=== PATIENT | female | born 1970 | race Caucasian/White ===

== ENCOUNTER 2023-07-26 21:33 | Emergency (ER) | payer BC, SELFPAY ==
[2023-07-26 21:40] VITALS: BP 136/80; PULSE 110; RESP 18; TEMP 36.7; O2SAT 92; BMI 33.3
--- NOTE | 2023-07-26 22:17 | ED.NAVMDI ---
HPI - Nausea/Vomiting/Diarrhea General Time Seen by Provider: 22:17 Date Seen: 07/26/23 Chief complaint: Nausea/Vomiting Stated complaint: Vomiting Time Seen by Provider: 07/26/23 22:17 Source: patient, family and RN notes reviewed Mode of arrival: EMS Limitations: no limitations History of Present Illness HPI Narrative: Patient is a very pleasant 53-year-old female with history of tobacco use, alcohol use daily 1 drink who comes to the emergency room for evaluation regarding vomiting and blood in her vomit. Patient noted to have been eating with her family tonight at a seafood restaurant. They also had the same food. Shortly thereafter she began experiencing vomiting that was quite violent. They actually had to call the ambulance and patient's vomiting resolved with dosing of Zofran. Patient notes that her throat is sore right now. She denies a sore throat prior to the vomiting, runny nose fever or chills. Strangely, approximately 2 weeks ago they also had seafood and she did have an episode of vomiting. This did not continue for a couple hours like this evening. Patient denies difficulty breathing. She is able to swallow without difficulty. She notes no abdominal pain. Associated nausea: Yes Related Data Allergies Allergy/AdvReac Type Severity Reaction Status Date / Time No Known Drug Allergies Allergy Verified 07/26/23 21:50 Review of Systems Status of ROS: Reports: 10 or more systems reviewed and unremarkable except as noted in History and below Const: Denies: fever or chills ENMT: Reports: throat pain and hoarseness; Denies: neck pain, throat swelling, difficulty swallowing, mouth pain or swelling of lips/tongue Cardio: Denies: chest pain or shortness of breath with exertion Resp: Denies: shortness of breath or cough GI: Reports: nausea and vomiting; Denies: abdominal pain, diarrhea or difficulty swallowing : Denies: painful urination Musculo: Denies: back pain or neck pain Integ/Breast: Denies: rash Neuro: Denies: headache Allergy/Immuno: Denies: throat swelling PFSH PFSH Medical History Tobacco use (02/16/09) ?Z72.0 - Tobacco use (ICD-10) Internal hemorrhoids ?K64.8 - Other hemorrhoids (ICD-10) Boxers fracture ?S62.339A - Displaced fracture of neck of unspecified metacarpal bone, initial encounter for closed fracture (ICD-10) Injury ?T14.90XA - Injury, unspecified, initial encounter (ICD-10) Surgical History Status post laparoscopic appendectomy ?Z90.49 - Acquired absence of other specified parts of digestive tract (ICD-10) Social History Smoking Status: Current every day smoker What tobacco products do you use: cigarettes Do you use any of these nicotine containing products: None Second hand tobacco smoke exposure: No How often do you have a drink containing alcohol: 2-3 times a week How many standard drinks containing alcohol do you have on a typical day: 1 or 2 How often do you have six or more drinks on one occasion: Never AUDIT-C Alcohol total score: 3 Non-prescribed substance use: denies use Exam Narrative: Exam Narrative: Patient is alert and oriented. Slightly hoarse voice. Nontoxic in appearance. No acute distress. External ears eyes nose clear. Oral cavity with moist mucous membranes. No swelling of the posterior oropharynx or tongue. Neck is supple without lymphadenopathy. Heart with a tachycardic rate but normal rhythm. Oxygen saturations are 91-94%. Lungs are clear in all lung anaya. Abdomen is soft nontender. Lower extremities without edema. No evidence of subcutaneous emphysema. Const: Vital Signs, click to edit/add: Vital Signs - 24 hr 07/26/23 21:40 07/26/23 23:09 07/26/23 23:15 Temperature 98.0 F Pulse Rate 99 100 Pulse Rate [Right Pulse Oximeter] 110 H Respiratory Rate 18 Blood Pressure [Ri ght Upper Arm] 136/80 Pulse Oximetry 92 94 93 Oxygen Delivery Me thod Room Air 07/26/23 23:30 Temperature Pulse Rate 98 Pulse Rate [Right Pulse Oximeter] Respiratory Rate Blood Pressure [Ri ght Upper Arm] Pulse Oximetry 94 Oxygen Delivery Me thod Documenting provider has reviewed patient's vital signs: yes Course Course ED Course: At this time differential diagnosis includes but is not limited to allergic reaction, esophagitis, esophageal rupture, biliary colic, bowel obstruction, gastritis. Will place IV give 1 L of normal saline along with treatment for potential allergic reaction with Benadryl 50 mg, dexamethasone 10 mg, famotidine 20 mg IV. Reevaluation(s) Reevaluation #1: White count has come back elevated at 20,000 thousand. Have ordered chest CT as family notes blood in vomit described as small clots. Vital Signs Vital signs: Initial Vital Signs Temperature 98.0 F 07/26/23 21:40 Temperature Source Temporal Artery Scan 07/26/23 21:40 Pulse Rate 110 H 07/26/23 21:40 Respiratory Rate 18 07/26/23 21:40 Blood Pressure 136/80 07/26/23 21:40 Blood Pressure Mean 98 07/26/23 21:40 Blood Pressure Position Sitting 07/26/23 21:40 Pulse Oximetry 92 07/26/23 21:40 Oxygen Delivery Method Room Air 07/26/23 21:40 Vital Signs Temperature 98.0 F 07/26/23 21:40 Pulse Rate 110 H 07/26/23 21:40 Respiratory Rate 18 07/26/23 21:40 Blood Pressure 136/80 07/26/23 21:40 Pulse Oximetry 92 07/26/23 21:40 Oxygen Delivery Method Room Air 07/26/23 21:40 Temperature 98.0 F 07/26/23 21:40 Pulse Rate 98 07/26/23 23:30 Respiratory Rate 18 07/26/23 21:40 Blood Pressure 136/80 07/26/23 21:40 Pulse Oximetry 94 07/26/23 23:30 Oxygen Delivery Method Room Air 07/26/23 21:40 Medications Administered Medications: Generic Name Dose Route Start Last Admin Trade Name Froilan PRN Reason Stop Dose Admin Dexamethasone 10 mg 07/26/23 22:18 07/26/23 22:42 Dexamethasone 10 Mg/Ml Inj IVP 07/26/23 22:19 10 mg ONCE ONE Administration Diphenhydramine HCl 50 mg 07/26/23 22:18 07/26/23 22:42 Diphenhydramine 50 Mg/Ml Inj IVP 07/26/23 22:19 50 mg ONCE ONE Administration Famotidine 20 mg 07/26/23 22:18 07/26/23 22:42 Famotidine 10 Mg/Ml Inj IVP 07/26/23 22:19 20 mg ONCE ONE Administration Sodium Chloride 1,000 mls @ 1,000 mls/hr 07/26/23 22:19 07/26/23 23:52 0.9 % Sodium Chloride 1000 Ml IV 07/26/23 23:18 Infused .Q1H COLIN Infusion MDM - Nausea/Vomiting/Diarrhea MDM Narrative Medical decision making narrative: 1. Vomiting-resolved after dose of Zofran with EMS. No recurrent vomiting in the ED. This is not occurring in the setting of diarrhea, abdominal pain or recent fever. 2. GI allergic reaction -tonight's reaction appears to be related to the intake of seafood. Similar but much milder occurrence 2 weeks ago when eating seafood. At this point would recommend avoiding seafood. LFTs minimally elevated. Lipase within normal limits. Patient continues to feel well with soft abdomen no sign of obstruction or right upper quadrant pain. Patient received dexamethasone, famotidine as well as Benadryl. Would like patient to continue Benadryl 50 mg every 6 hours last dose tomorrow night. 3. Hematemesis-likely secondary to Alondra-Jacobo tear. Again no further vomiting in the ED. Patient did receive famotidine through IV. Recommend continuing with Pepcid b.i.d. or omeprazole daily for 5-7 days. 4. Leukocytosis-likely demargination. However, would have her follow up with her primary MD for recheck. 5. Disposition -home at this time. Seek medical attention for any worsening symptoms. Note patient still has somewhat of a raspy voice but has been drinking without difficulty. No complaints of difficulty with swallowing, breathing. She has been monitored in the ED for a number of hours without worsening but only improvement of her symptoms. Medical Records Attestation: I reviewed the patient's medical records. Lab Data Attestation: I reviewed the patient's lab results. Labs: Lab Results 07/26/23 Range/Units 22:40 WBC 20.13 H (4.50-11.00) K/uL RBC 4.86 (4.00-5.20) m/uL Hgb 16.5 H (12.0-16.0) gm/dL Hct 47.7 (33.0-51.0) % MCV 98 (80-100) fL MCH 34 (26-34) pg MCHC 35 (32-36) gm/dL RDW Coeff of Soraya 12.4 (11.5-15.5) % Plt Count 270 (140-440) K/uL Neut % (Auto) 84.7 H (42.0-72.0) % Lymph % (Auto) 6.5 L (20-44) % [place] % (Auto) 7.2 (0.0-11.0) % Eos % (Auto) 0.3 (0.0-7.0) % Baso % (Auto) 0.1 (0.0-3.0) % Neut # (Auto) 17.10 H (1.7-7.0) K/uL Lymph # (Auto) 1.30 (0.90-2.90) K/uL [place] # (Auto) 1.40 H (0.00-0.90) K/UL Eos # (Auto) 0.10 (0.00-0.50) K/uL Baso # (Auto) 0.00 (0.00-0.30) K/uL Abs Immat Gran (auto) 0.20 (0.00-0.30) K/uL Imm/Tot Granulo (auto) 1.2 % Sodium 137 (135-149) mmol/L Potassium 4.1 (3.6-5.1) mmol/L Chloride 102 (96-114) mmol/L Carbon Dioxide 24 (20-32) mmol/L Anion Gap 11 (7-15) mEq/L BUN 17 (7-30) mg/dL Creatinine 0.6 (0.5-1.5) mg/dL Estimated Creat Clear 97.57 Estimated GFR 107 ml/min Glucose 140 H (60-115) mg/dL Calcium 9.5 (8.4-10.6) mg/dL Total Bilirubin 0.7 (0.1-1.5) mg/dL AST 61 H (12-35) U/L ALT 64 H (4-35) U/L Alkaline Phosphatase 95 (40-150) U/L C-Reactive Protein 1.2 H (0.5-1.0) mg/dL Total Protein 7.9 (6.0-8.3) g/dL Albumin 4.5 (3.3-5.0) g/dL Lipase 129 (23-300) U/L Imaging Data CT scan - chest: Attestation: I have reviewed the pertinent imaging results. My impression: I do not note any any signs of ruptured esophagus or other abnormality. Radiologist's impression: Lower neck: Partially calcified nodule in the left lower thyroid lobe. Lungs: Scattered emphysematous changes. Mild pulmonary vascular congestion. No focal consolidation. Airways: The trachea remains patent. Pleura: No pleural effusions, or pneumothorax. Cardiovascular: Heart size is normal. Thoracic aorta and pulmonary artery are normal in caliber. Lymph nodes: No mediastinal, hilar, or axillary adenopathy. Chest wall: Diffuse hepatic steatosis. Upper abdomen: Small hiatal hernia Bones: Mild degenerative changes of the thoracic spine. No acute osseous abnormalities. IMPRESSION: Unremarkable contrast-enhanced CT of the chest Discharge Plan Discharge Clinical Impression: Allergic reaction to seafood, Alondra-Jacobo tear, Vomiting alone Patient Disposition: Home, Self-Care Condition: Improved Additional Instructions: 1. Continue Benadryl 50 mg every 6 hours, last dose will be tomorrow night. 2. I would recommend, given the bleeding that was caused by the violent vomiting, the use of either Pepcid 1 tablet every 12 hours or omeprazole 1 tablet daily. You need only do this for 5-7 days. 3. Avoid seafood from this point forward. 4. Seek medical attention for swelling of the mouth, mucous membranes, lips, difficulty breathing, difficulty swallowing and as needed. 5. Follow-up with your primary MD to recheck white count to ensure that it goes back to normal. Most likely this is elevated secondary to the violent nature of your vomiting tonight. Follow Up/Referrals: Ryne Palafox MD [Staff Physician] - Stand Alone Forms: [facility] Info Instructions
[2023-07-26] MEDS: FAMOTIDINE 10 MG/ML inj 20 MG IVP (22:42)
[2023-07-26] MEDS: diphenhydrAMINE 50 MG/ML inj IVP (22:42)
[2023-07-26] MEDS: dexAMETHasone 10 MG/ML inj IVP (22:42)
[2023-07-26 22:52] LABS: Basophils Percent Auto 0.1 % (0.0-3.0); Eosinophils Percent Auto 0.3 % (0.0-7.0); Hematocrit 47.7 % (33.0-51.0); Hemoglobin* 16.5 gm/dL (12.0-16.0); Immature Granulocytes Pct Auto 1.2 %; Lymphocytes Percent Auto 6.5 % (20-44); Mean Corpuscular HGB Conc 35 gm/dL (32-36); Mean Corpuscular Hemoglobin 34 pg (26-34); Mean Corpuscular Volume 98 fL (80-100); Monocytes Percent Auto 7.2 % (0.0-11.0); Neutrophils Percent Auto 84.7 % (42.0-72.0); Platelet Count* 270 K/uL (140-440); RDW Coefficient of Variation % 12.4 % (11.5-15.5); Red Blood Count 4.86 m/uL (4.00-5.20); White Blood Count* 20.13 K/uL (4.50-11.00)
[2023-07-26] MEDS: 0.9 % SODIUM CHLORIDE 1000 ml 1,000 ML IV (22:53)
[2023-07-26 23:00] LABS: Slide Review Reflex No
[2023-07-26 23:05] LABS: Albumin* 4.5 g/dL (3.3-5.0); Chloride* 102 mmol/L (96-114)
[2023-07-26 23:06] LABS: Potassium* 4.1 mmol/L (3.6-5.1); Sodium* 137 mmol/L (135-149)
[2023-07-26 23:08] LABS: Alkaline Phosphatase* 95 U/L (40-150); Anion Gap 11 mEq/L (7-15); Aspartate Amino Transferase* 61 U/L (12-35); Bilirubin Total* 0.7 mg/dL (0.1-1.5); Blood Urea Nitrogen* 17 mg/dL (7-30); Carbon Dioxide* 24 mmol/L (20-32); Creatinine* 0.6 mg/dL (0.5-1.5); Est. Creatinine Clearance* 97.57; Estimated Glomerular Filt Rate 107 ml/min; Lipase* 129 U/L (23-300); Total Protein* 7.9 g/dL (6.0-8.3)
[2023-07-26 23:09] VITALS: PULSE 99; O2SAT 94
[2023-07-26 23:09] LABS: Alanine Aminotransferase* 64 U/L (4-35); Calcium* 9.5 mg/dL (8.4-10.6); Glucose* 140 mg/dL (60-115)
[2023-07-26 23:11] LABS: C Reactive Protein* 1.2 mg/dL (0.5-1.0)
--- NOTE | 2023-07-26 23:11 | CRLHL7_ITS ---
For Patients: As a result of the Century Cures Act, medical imaging exams and procedure reports are released immediately into your electronic medical record. You may view this report before your referring provider. If you have questions, please contact your health care provider. INDICATION: Vomiting, hematemesis TECHNIQUE: Multiplanar CT examination of the chest was performed after the administration of 75 mL Isovue 370 contrast intravenously. COMPARISON: Chest radiograph 06/19/2019 FINDINGS: Lower neck: Partially calcified nodule in the left lower thyroid lobe. Lungs: Scattered emphysematous changes. Mild pulmonary vascular congestion. No focal consolidation. Airways: The trachea remains patent. Pleura: No pleural effusions, or pneumothorax. Cardiovascular: Heart size is normal. Thoracic aorta and pulmonary artery are normal in caliber. Lymph nodes: No mediastinal, hilar, or axillary adenopathy. Chest wall: Diffuse hepatic steatosis. Upper abdomen: Small hiatal hernia Bones: Mild degenerative changes of the thoracic spine. No acute osseous abnormalities. IMPRESSION: Unremarkable contrast-enhanced CT of the chest. Please note that all CT scans at this facility use dose modulation, iterative reconstruction, and/or weight-based dosing when appropriate to reduce radiation dose to as low as reasonably achievable. Dictated by Jimbo Dozier MD @ 07/27/2023 12:47:41 AM (Electronically Signed)
[2023-07-26 23:15] VITALS: PULSE 100; O2SAT 93
[2023-07-26 23:30] VITALS: PULSE 98; O2SAT 94
== END 2023-07-27 01:00 | disposition home or self-care (01) ==
PROVIDERS: Emergency Provider Family Medicine
DX: K22.6 Gastro-esophageal laceration-hemorrhage syndrome (principal); R11.10 Vomiting, unspecified; Z91.013 Allergy to seafood
CPT/HCPCS: 36415; 71260; 80053; 83690; 85025; 86140; 96374; 96375; 99284; J1100; J1200; J7030; Q9967; S0028

== ENCOUNTER 2024-02-17 07:59 | Outpatient (CLI) | payer BC, SELFPAY | END 2024-02-17 08:00 | disposition home or self-care (01) | LOC: NFLDREF 02-21 10:38 | PROVIDERS: Visit Provider Family Medicine | DX: E78.00 Pure hypercholesterolemia, unspecified (principal) | CPT/HCPCS: 80061 ==

== ENCOUNTER 2024-03-01 15:16 | Outpatient (CLI) | payer BC, SELFPAY ==
[2024-03-01] MEDS: PERFLUTREN LIPID MICROSPHERES 2 ML VIAL IV (15:51)
[2024-03-01 16:20] VITALS: BP 113/74; PULSE 93
--- NOTE | 2024-03-01 16:30 | W.PM.STED ---
Stress Test Note Date Date of test: 03/01/24 Providers Primary care provider: Napoleon Logan Stress test physician: Michael Hobbs Stress Test Note Stress test ordered: Stress Echo Indication for test: Chest pain Results discussion: Patient is a very nice 53-year-old female who presents here for the above test after discussion the risks benefits and side effects she would like to proceed cardiac stress test history form is reviewed. Pretest EKG shows normal sinus rhythm with a ventricular rate of 81, blood pressure 144 and 78, no acute ST wave changes are noted standard Elder protocol is employed over a time course of 7 minutes, and she achieved a metabolic equivalent of 8.3 with a maximum heart rate 159 which is 111% of the maximum. Test is terminated because of overall fatigue, she did not have any chest pain there is some mild shortness of breath. Review of the tracing showed no acute ST wave changes suggestive of ischemia, there is no dysrhythmias noted. Conditioning was felt to be fair. Impression: Negative electrographic portion of stress echo, subjectively and objectively negative. Follow up suggested: Await echo images, these will be reviewed by Cardiology, clinical correlation with this will be needed. Patient left this testing facility in good condition.
== END 2024-03-01 15:17 | disposition home or self-care (01) ==
PROVIDERS: PCP Family Medicine; Visit Provider Family Medicine
DX: R07.9 Chest pain, unspecified (principal)
CPT/HCPCS: 93016; 93325; 93351; Q9957

== ENCOUNTER 2024-04-28 15:19 | Outpatient (CLI) | payer BC, SELFPAY ==
--- NOTE | 2024-04-28 15:40 | CRLHL7_ITS ---
For Patients: As a result of the Century Cures Act, medical imaging exams and procedure reports are released immediately into your electronic medical record. You may view this report before your referring provider. If you have questions, please contact your health care provider. BILATERAL SCREENING MAMMOGRAM WITH COMPUTER-AIDED DETECTION AND TOMOSYNTHESIS TECHNIQUE: CC and MLO views were obtained. These mammographic images have been obtained using full-field digital technique. These mammographic images were interpreted with the benefit of computer-aided detection. Breast Tomosynthesis was used in this interpretation. COMPARISON FILM: 02/23/19, 01/12/18, 01/06/17. FINDINGS: There are scattered areas of fibroglandular density. IMPRESSION: There is no radiographic evidence for malignancy. ASSESSMENT: BI-RADS Category 1: Negative RECOMMENDATION: Routine screening mammogram in 1 year. A lay language report of this examination will be provided to the patient. Brandon Gomez M.D. Diagnostic Radiologist [email or web address] SP/Dictated by: Brandon Gomez MD @ 04/29/2024 9:47:00 AM (Electronically Signed)
== END 2024-04-28 15:20 | disposition home or self-care (01) ==
LOC: MAMMO 15:20
PROVIDERS: PCP Family Medicine; Visit Provider Family Medicine
DX: Z12.31 Encounter for screening mammogram for malignant neoplasm of breast (principal)
CPT/HCPCS: 77063; 77067

== ENCOUNTER 2025-08-21 14:40 | Outpatient (CLI) | payer BC, SELFPAY ==
--- NOTE | 2025-08-21 15:00 | CRLHL7_ITS ---
For Patients: As a result of the Century Cures Act, medical imaging exams and procedure reports are released immediately into your electronic medical record. You may view this report before your referring provider. If you have questions, please contact your health care provider. INDICATION: BILATERAL SCREENING MAMMOGRAM, ASYMPTOMATIC 55 Y/O FEMALE COMPARISON: 04/28/2024, 03/04/2019, 01/28/2018 TECHNIQUE: Digital mammogram in CC and MLO projections including computer-aided detection (CAD) and tomosynthesis. BREAST COMPOSITION: There are scattered areas of fibroglandular density. FINDINGS: No suspicious findings. ASSESSMENT: BI-RADS 1 Negative RECOMMENDATION: Annual screening mammogram. A lay language report of this examination will be provided to the patient. Dictated by: Brandon Gomez MD @ 08/22/2025 10:45:43 (Electronically Signed)
== END 2025-08-21 14:41 | disposition home or self-care (01) ==
LOC: MAMMO 14:41
PROVIDERS: PCP Family Medicine; Visit Provider Family Medicine
DX: Z12.31 Encounter for screening mammogram for malignant neoplasm of breast (principal)
CPT/HCPCS: 77063; 77067